=== PATIENT | male | born 1995 | race Two or more races ===

== ENCOUNTER 2017-11-13 11:21 | Emergency (ER) | payer OTHER ==
[~2017-11-13] VITALS: Ht 165.1 cm; Wt 73.8 kg
[2017-11-13 11:24] VITALS: BP 128/69
== END 2017-11-13 12:05 | disposition home or self-care (01) ==
LOC: ED 11:59
DX: L03.115 Cellulitis of right lower limb (principal); L03.317 Cellulitis of buttock; R73.09 Other abnormal glucose
CPT/HCPCS: 82962; 99283